=== PATIENT | female | born 1950 | race Caucasian/White ===

== ENCOUNTER 2017-05-17 13:05 | Inpatient (IN) ==
[2017-05-17 14:29] LABS: Basophils # 0.1 10*3/uL (0.0-0.2); Basophils % 0.6 % (0.0-0.8); Eosinophils # 0.1 10*3/uL (0.0-0.87); Hematocrit 42.7 VOL% (35.7-47.0); Hemoglobin 14.1 GM/DL (12.0-16.0); Immature Granulocytes % 0.2 %; Immature Granulocytes Absolute 0.03 #; Lymphocytes # 1.5 10*3/uL (1.4-4.0); Lymphocytes % 10.3 % (21.3-54.2); Mean Corpuscular Hemoglobin 29 PG (27-34); Mean Corpuscular Volume 88.4 FL (87-102); Mean Platelet Volume 9.6 FL (9.6-12.0); Monocytes # 1.5 10*3/uL (0.11-0.8); Monocytes % 10.3 % (1.7-12.7); Neutrophils # 11.2 10*3/uL (1.4-7.4); Neutrophils % 77.6 % (38.7-73.9); Platelet Count 263 T/CUMM (130-400); Red Blood Count 4.83 MC/CUMM (3.8-5.5); Red Cell Distribution Width 13.3 % (9.3-17.3); White Blood Count 14.5 T/CUMM (4-12)
[2017-05-17 14:39] LABS: INR 1.1; PT Patient Result 11.3 SECS
[2017-05-17 14:41] LABS: Apearance,Urine Slightly Hazy (Clear); Bacteria,Urine Occasional /HPF (Few); Bilirubin,Urine Negative (Negative); Blood, Urine Small mg/dL (Negative); Glucose,Urine (UA) Negative (Negative); Ketones,Urine Negative (Negative); Mucus,Urine Occasional /LPF (Occasional); Nitrite,Urine Negative (Negative); Protein,Urine Negative; RBC,Urine <1 /HPF (0-4); Squamous Epithelial Cell,Urine Occasional /HPF (0-10); Urine Color Yellow (Yellow); Urine Specific Gravity 1.011 (1.001-1.035); Urine Urobilinogen < 2.0 EU/DL (0.2-1.0); WBC,Urine 3 /HPF (0-6)
[2017-05-17 14:46] LABS: Barbiturates Screen,Urine Negative (Negative); Benzodiazepines Screen,Urine Negative (Negative); Cannabinoid Screen,Urine Negative (Negative); Opiate Screen,Urine Negative (Negative); Phencyclidine Screen,Urine Negative (Negative)
[2017-05-17 14:58] LABS: Albumin 4.1 G/DL (3.4-5.0); Bilirubin,Total 0.9 MG/DL (0.2-1.0); Calcium 9.2 MG/DL (8.5-10.1); Osmolality,Calculated 285.1 MOS/KG (273-304); Potassium 4.1 MMOL/L (3.5-5.1); Total Protein 6.9 G/DL (6.4-8.3)
[2017-05-17] MEDS ORDERED: ENOXAPARIN 100 MG/ML SYRINGE SUBCUT STA (15:25)
[2017-05-17] MEDS ORDERED: ASPIRIN 325 MG TABLET PO STA (15:25)
[2017-05-17] MEDS ORDERED: ONDANSETRON 4 MG/2 ML VIAL IV STA (15:31)
[2017-05-17] MEDS ORDERED: NITROGLYCERIN 2% OINT 1 INCH/GM PACK TOP STA (15:31)
[2017-05-17] MEDS ORDERED: MORPHINE 2 MG/1 ML SYRINGE IV STA (15:31)
[2017-05-17] MEDS ORDERED: ALUM/MAG/SIMETH/LIDO VISC 1:1 30 ML BOTTLE PO STA (15:31)
[2017-05-17] MEDS ORDERED: ONDANSETRON 4 MG/2 ML VIAL IV PRN (16:16)
[2017-05-17] MEDS ORDERED: ACETAMINOPHEN 325 MG TABLET PO PRN (16:16)
[2017-05-17] MEDS ORDERED: ASPIRIN 325 MG TABLET ONE (16:23)
[2017-05-17] MEDS ORDERED: ENOXAPARIN 80 MG/0.8 ML SYRINGE SUBCUT ONE (16:23)
[2017-05-17] MEDS ORDERED: ONDANSETRON 4 MG/2 ML VIAL ONE (16:23)
[2017-05-17] MEDS ORDERED: NITROGLYCERIN 2% OINT 1 INCH/GM PACK TOP ONE (16:23)
[2017-05-17] MEDS ORDERED: MORPHINE 2 MG/1 ML SYRINGE ONE (16:23)
[2017-05-17] MEDS ORDERED: ALUM/MAG/SIMETH/LIDO VISC 1:1 30 ML BOTTLE PO ONE (16:24)
[2017-05-17] MEDS ORDERED: PNEUMOCOCCAL VACCINE (13 VALENT) 0.5 ML SYRINGE IM ONE (17:30)
[2017-05-17 18:06] LABS: Troponin I Only 0.106 NG/ML (0.00-0.045)
[2017-05-17] MEDS: SODIUM CHLORIDE 0.9% 1,000 ML IV SCH (18:23)
[2017-05-17 21:40] LABS: Troponin I Only 0.099 NG/ML (0.00-0.045)
[2017-05-17] MEDS: MELATONIN 3 MG TABLET PO SCH (21:52)
[2017-05-17] MEDS: PRAVASTATIN 20 MG TABLET PO SCH (21:52)
[2017-05-18] MEDS: SODIUM CHLORIDE 0.9% 1,000 ML IV SCH ×2 (02:40→08:47)
[2017-05-18 04:55] LABS: Basophils # 0.1 10*3/uL (0.0-0.2); Basophils % 0.5 % (0.0-0.8); Eosinophils # 0.2 10*3/uL (0.0-0.87); Eosinophils % 1.8 % (0.00-10.9); Hematocrit 37.6 VOL% (35.7-47.0); Hemoglobin 12.1 GM/DL (12.0-16.0); Immature Granulocytes % 0.4 %; Immature Granulocytes Absolute 0.04 #; Lymphocytes # 2.1 10*3/uL (1.4-4.0); Mean Corpuscular HGB Conc 32.2 GM/DL (32-36); Mean Corpuscular Hemoglobin 29 PG (27-34); Mean Corpuscular Volume 89.3 FL (87-102); Mean Platelet Volume 9.8 FL (9.6-12.0); Monocytes % 10.5 % (1.7-12.7); Neutrophils # 6.4 10*3/uL (1.4-7.4); Neutrophils % 65.8 % (38.7-73.9); Platelet Count 210 T/CUMM (130-400); Red Blood Count 4.21 MC/CUMM (3.8-5.5); Red Cell Distribution Width 13.5 % (9.3-17.3); White Blood Count 9.7 T/CUMM (4-12)
[2017-05-18 05:36] LABS: Calcium 8.2 MG/DL (8.5-10.1); Osmolality,Calculated 279.5 MOS/KG (273-304); Potassium 4.4 MMOL/L (3.5-5.1); Risk Ratio 2.06; Thyroid Stimulating Hormone 3.06 uIU/ml (0.358-3.74)
[2017-05-18] MEDS ORDERED: ENOXAPARIN 80 MG/0.8 ML SYRINGE SUBCUT SCH (08:00)
[2017-05-18] MEDS ORDERED: FUROSEMIDE 20 MG/2 ML VIAL IV ONE (08:22)
[2017-05-18] MEDS: ASPIRIN EC 81 MG TABLET PO SCH (08:46)
[2017-05-18] MEDS: METOPROLOL SUCCINATE XL 25 MG TABLET PO SCH (08:46)
[2017-05-18] MEDS: SOLIFENACIN 5 MG TABLET PO SCH (08:46)
[2017-05-18] MEDS ORDERED: MAGNESIUM SULF RIDER 2 GM in PREMIX 1 EACH IV PRN (08:47)
[2017-05-18] MEDS ORDERED: POTASSIUM CHLORIDE RIDER 10 MEQ in PREMIX 1 EACH IV PRN (08:47)
[2017-05-18] MEDS ORDERED: DIAZEPAM 5 MG TABLET PO ONE (08:48)
[2017-05-18] MEDS ORDERED: diphenhydrAMINE CAP 25 MG CAPSULE PO ONE (08:48)
[2017-05-18] MEDS ORDERED: PANTOPRAZOLE 40 MG TABLET PO SCH (09:00)
[2017-05-18 10:41] LABS: Troponin I Only 0.107 NG/ML (0.00-0.045)
[2017-05-18] MEDS ORDERED: ENOXAPARIN 40 MG/0.4 ML SYRINGE SUBCUT SCH (16:30)
[2017-05-18 16:35] LABS: Troponin I Only 0.126 NG/ML (0.00-0.045)
[2017-05-18] MEDS: PANTOPRAZOLE 40 MG TABLET PO SCH (21:53)
[2017-05-18] MEDS: MELATONIN 3 MG TABLET PO SCH (21:53)
[2017-05-18] MEDS: PRAVASTATIN 20 MG TABLET PO SCH (21:53)
[2017-05-19 05:32] LABS: Calcium 8.1 MG/DL (8.5-10.1); Magnesium 2.1 MG/DL (1.8-2.4); Osmolality,Calculated 283.3 MOS/KG (273-304); Potassium 4.1 MMOL/L (3.5-5.1)
[2017-05-19] MEDS ORDERED: diphenhydrAMINE CAP 25 MG CAPSULE PO ONE (06:00)
[2017-05-19] MEDS ORDERED: DIAZEPAM 5 MG TABLET PO ONE (06:00)
[2017-05-19] MEDS: METOPROLOL SUCCINATE XL 25 MG TABLET PO SCH (08:01)
[2017-05-19] MEDS: ASPIRIN EC 81 MG TABLET PO SCH (08:01)
[2017-05-19] MEDS: PANTOPRAZOLE 40 MG TABLET PO SCH ×2 (08:09→21:34)
[2017-05-19] MEDS ORDERED: HEPARIN/NACL 0.9% 2 UNITS/ML 500 ML IV ONE (08:19)
[2017-05-19] MEDS ORDERED: LIDOCAINE 1% 20 ML VIAL ONE (08:19)
[2017-05-19] MEDS ORDERED: ENOXAPARIN 40 MG/0.4 ML SYRINGE SUBCUT SCH (09:00)
[2017-05-19] MEDS ORDERED: PROPOFOL 200 MG/20 ML VIAL IV ONE (10:00)
[2017-05-19] MEDS ORDERED: ETOMIDATE 20 MG/10 ML VIAL IV ONE (10:01)
[2017-05-19] MEDS ORDERED: SODIUM CHLORIDE 0.45% 1,000 ML IV SCH (11:30)
[2017-05-19] MEDS: SOLIFENACIN 5 MG TABLET PO SCH (17:07)
[2017-05-19] MEDS: FUROSEMIDE 40 MG TABLET PO SCH (17:07)
[2017-05-19] MEDS: MELATONIN 3 MG TABLET PO SCH (21:34)
[2017-05-19] MEDS: PRAVASTATIN 20 MG TABLET PO SCH (21:35)
[2017-05-20 04:36] LABS: Basophils # 0.1 10*3/uL (0.0-0.2); Basophils % 0.8 % (0.0-0.8); Eosinophils # 0.4 10*3/uL (0.0-0.87); Eosinophils % 4.3 % (0.00-10.9); Hematocrit 35.4 VOL% (35.7-47.0); Hemoglobin 11.5 GM/DL (12.0-16.0); Immature Granulocytes % 0.2 %; Immature Granulocytes Absolute 0.02 #; Lymphocytes # 2.1 10*3/uL (1.4-4.0); Lymphocytes % 23.6 % (21.3-54.2); Mean Corpuscular HGB Conc 32.5 GM/DL (32-36); Mean Corpuscular Hemoglobin 29 PG (27-34); Mean Corpuscular Volume 89.4 FL (87-102); Mean Platelet Volume 10.3 FL (9.6-12.0); Monocytes # 1.1 10*3/uL (0.11-0.8); Monocytes % 12.3 % (1.7-12.7); Neutrophils # 5.1 10*3/uL (1.4-7.4); Neutrophils % 58.8 % (38.7-73.9); Platelet Count 214 T/CUMM (130-400); Red Blood Count 3.96 MC/CUMM (3.8-5.5); Red Cell Distribution Width 13.6 % (9.3-17.3); White Blood Count 8.7 T/CUMM (4-12)
[2017-05-20 05:41] LABS: Calcium 8.2 MG/DL (8.5-10.1); Magnesium 1.8 MG/DL (1.8-2.4); Osmolality,Calculated 280.4 MOS/KG (273-304); Potassium 3.9 MMOL/L (3.5-5.1)
[2017-05-20] MEDS ORDERED: NON-FORMULARY MEDICATION (Omeprazole [Omeprazole] 40 MG) PO SCH (09:00)
[2017-05-20] MEDS: SOLIFENACIN 5 MG TABLET PO SCH (10:21)
[2017-05-20] MEDS: PANTOPRAZOLE 40 MG TABLET PO SCH ×2 (10:22→21:13)
[2017-05-20] MEDS: METOPROLOL SUCCINATE XL 25 MG TABLET PO SCH (10:22)
[2017-05-20] MEDS: FUROSEMIDE 40 MG TABLET PO SCH (10:22)
[2017-05-20] MEDS ORDERED: FUROSEMIDE 40 MG/4 ML VIAL IV ONE (11:57)
[2017-05-20] MEDS ORDERED: ZALEPLON 5 MG CAPSULE PO PRN (14:36)
[2017-05-20] MEDS: ASPIRIN EC 81 MG TABLET PO SCH (15:18)
[2017-05-20] MEDS: MELATONIN 3 MG TABLET PO SCH (21:13)
[2017-05-20] MEDS: PRAVASTATIN 20 MG TABLET PO SCH (21:13)
[2017-05-21] MEDS ORDERED: FUROSEMIDE 40 MG/4 ML VIAL IV ONE (08:46)
[2017-05-21] MEDS: ASPIRIN EC 81 MG TABLET PO SCH (09:21)
[2017-05-21] MEDS: PANTOPRAZOLE 40 MG TABLET PO SCH (09:21)
[2017-05-21] MEDS: METOPROLOL SUCCINATE XL 25 MG TABLET PO SCH (09:21)
[2017-05-21] MEDS: SOLIFENACIN 5 MG TABLET PO SCH (09:24)
[2017-05-21] MEDS ORDERED: INFLUENZA VIRUS VACCINE 0.5 ML SYRINGE IM ONE (15:01)
[2017-05-21 16:12] VITALS: BP 103/57
== END 2017-05-21 16:30 | disposition home or self-care (01) | DRG 286 ==
LOC: N.EDINP 13:05 → N.ED 13:05 → N.TELES 17:09
PROVIDERS: ADMIT Hospitalist; ATTEND Hospitalist